=== PATIENT | female | born 1970 | race African-American/Black ===

== ENCOUNTER 2020-11-30 11:26 | Inpatient (IN) | payer MEDICARE, MEDICAID, SELFPAY ==
[~2020-11-30] VITALS: Ht 162.6 cm; Wt 137.9 kg
[2020-11-30] VITALS (11 sets, daily range): BP systolic 98–135
[2020-11-30] MEDS ORDERED: DEXAMETHASONE SOD PHOSPHATE 4 MG/ML VIAL IVP ONE (12:00)
[2020-11-30] MEDS ORDERED: AZITHROMYCIN 500 MG in NS 250 ML IV ONE (12:00)
[2020-11-30] MEDS ORDERED: cefTRIAXone 1 GM in D5W 50 ML IV ONE (12:00)
[2020-11-30] MEDS ORDERED: cefTRIAXone 1 GM VIAL ONE (12:12)
[2020-11-30] MEDS ORDERED: AZITHROMYCIN 500 MG/VIAL (ZITHROMAX) IV ONE (12:13)
[2020-11-30] MEDS ORDERED: DEXAMETHASONE SOD PHOSPHATE 4 MG/ML VIAL ONE (12:14)
[2020-11-30 12:48] LABS: BASOPHILS % (AUTO) 0.4 % (0.0-2.0); HEMATOCRIT 39.3 % (36-48); HEMOGLOBIN 12.8 g/dL (12.0-16.0); LYMPHOCYTES # (AUTO) 1.1 K/uL (1.0-5.5); LYMPHOCYTES % (AUTO) 14.5 % (20.5-51.5); MEAN CORPUSCULAR HEMOGLOBIN 25 pg (27-31); MEAN CORPUSCULAR HGB CONC 33 % (32-36); MEAN CORPUSCULAR VOLUME 77 fL (79.0-98.0); MONOCYTES # (AUTO) 0.6 K/uL (0.0-1.0); MONOCYTES % (AUTO) 7.9 % (1.7-9.3); NEUTROPHILS # (AUTO) 5.7 K/uL (1.8-7.7); NEUTROPHILS % (AUTO) 77.2 % (40.0-70.0); PLATELET COUNT (AUTO) 214 K/uL (130-430); RED CELL DISTRIBUTION WIDTH 15.9 % (9.0-15.0); WHITE BLOOD COUNT (AUTO) 7.4 K/uL (4.8-10.8)
[2020-11-30 12:57] LABS: CALCIUM 7.9 mg/dL (8.4-11.0); CREATININE 3.69 mg/dL (0.55-1.30); POTASSIUM 3.9 mmol/L (3.5-5.1)
[2020-11-30 13:14] LABS: ALBUMIN 2.9 g/dL (3.4-4.8); TOTAL BILIRUBIN 0.2 mg/dL (0.0-1.0)
[2020-11-30 13:21] LABS: INR 0.9 (0.8-1.2); PROTHROMBIN TIME 9.9 SECS (9.5-12.5)
[2020-11-30] MEDS ORDERED: LORazepam 2 MG/ML VIAL IVP ONE (13:30)
[2020-11-30] MEDS ORDERED: ASPIRIN 325 MG TABLET PO ONE (13:30)
[2020-11-30] MEDS ORDERED: LORazepam 2 MG/ML VIAL ONE (13:37)
[2020-11-30 13:45] LABS: CKMB RELATIVE INDEX 0.1 (0.0-2.9); CREATINE KINASE MB 1.9 ng/mL (0-3.6)
[2020-11-30 13:59] LABS: C-REACTIVE PROTEIN QUANT 11.8 mg/dL (0-0.5)
[2020-11-30] MEDS ORDERED: D5/0.45 NS 1,000 ML IV SCH (14:15)
[2020-11-30 15:16] LABS: BILIRUBIN,URINE NEGATIVE (NEGATIVE); BLOOD, URINE 3+ (NEGATIVE); CLARITY/URINE SL CLOUDY (CLEAR); COLOR,URINE YELLOW (YELLOW); GLUCOSE,URINE NEGATIVE (NEGATIVE); KETONES,URINE NEGATIVE (NEGATIVE); LEUKOCYTE ESTERASE ,URINE TRACE (NEGATIVE); NITRITE, URINE NEGATIVE (NEGATIVE); PH,URINE 5.5 (5.0-8.0); PROTEIN URINE 3+ (NEGATIVE); UROBILINOGEN,URINE 0.2 (0.2-1.0)
[2020-11-30] MEDS ORDERED: ACETAMINOPHEN 325 MG TABLET PO PRN (15:30)
[2020-11-30] MEDS ORDERED: ONDANSETRON HCL 4 MG/2 ML VIAL IVP PRN (15:30)
[2020-11-30 16:36] LABS: BACTERIA,URINE FEW /HPF (None Seen); COARSE GRANULAR CASTS,URINE 0-10 /LPF (None Seen); MUCUS,URINE None Seen /LPF (None Seen); URINE AMORPHOUS URATE 2+ /HPF (None Seen)
[2020-11-30] MEDS: D5/0.45 NS 1,000 ML IV SCH ×2 (17:02→21:30)
[2020-11-30] MEDS ORDERED: *HEPARIN PER PHARMACY XX ONE (17:45)
[2020-11-30] MEDS: IPRATROPIUM BROM 0.5 MG/2.5 ML VIAL.NEB (ATROVENT) INH SCH (19:00)
[2020-11-30] MEDS ORDERED: DEXAMETHASONE SOD PHOSPHATE 10 MG/ML VIAL IVP SCH (19:00)
[2020-11-30] MEDS: ALBUTEROL SULFATE 0.083% 2.5 MG/3 ML VIAL.NEB INH SCH (19:00)
[2020-11-30] MEDS ORDERED: HEPARIN SODIUM,PORCINE 2000 UNITS/0.4 ML BOLUS IVP PRN (19:45)
[2020-11-30] MEDS ORDERED: HEPARIN SODIUM,PORCINE 3000 UNITS/0.6 ML BOLUS IVP PRN (19:45)
[2020-11-30] MEDS ORDERED: IVERMECTIN 3 MG TABLET PO ONE (20:15)
[2020-11-30] MEDS: HEPARIN 25,000 UNITS in 250 ML PREMIX IV PRN (20:28)
[2020-11-30] MEDS: ASCORBIC ACID 500 MG TABLET PO SCH (21:00)
[2020-12-01] VITALS (24 sets, daily range): BP systolic 102–175
[2020-12-01] MEDS: D5/0.45 NS 1,000 ML IV SCH ×3 (06:00→21:30)
[2020-12-01 06:41] LABS: BASOPHILS % (AUTO) 0.5 % (0.0-2.0); EOSINOPHILS % (AUTO) 0.4 % (0.0-4.0); HEMATOCRIT 37.7 % (36-48); HEMOGLOBIN 12.4 g/dL (12.0-16.0); LYMPHOCYTES # (AUTO) 0.8 K/uL (1.0-5.5); LYMPHOCYTES % (AUTO) 9.7 % (20.5-51.5); MEAN CORPUSCULAR HEMOGLOBIN 26 pg (27-31); MEAN CORPUSCULAR HGB CONC 33 % (32-36); MEAN CORPUSCULAR VOLUME 80 fL (79.0-98.0); MONOCYTES # (AUTO) 0.5 K/uL (0.0-1.0); MONOCYTES % (AUTO) 6.1 % (1.7-9.3); NEUTROPHILS # (AUTO) 7.2 K/uL (1.8-7.7); NEUTROPHILS % (AUTO) 83.3 % (40.0-70.0); PLATELET COUNT (AUTO) 252 K/uL (130-430); RED BLOOD CELL COUNT(AUTO) 4.73 MIL/uL (4.2-6.2); RED CELL DISTRIBUTION WIDTH 15.8 % (9.0-15.0); WHITE BLOOD COUNT (AUTO) 8.6 K/uL (4.8-10.8)
[2020-12-01 07:57] LABS: ALBUMIN 2.7 g/dL (3.4-4.8); CREATININE 3.19 mg/dL (0.55-1.30); PHOSPHORUS 4.8 mg/dL (2.7-4.5); POTASSIUM 4.3 mmol/L (3.5-5.1); TOTAL BILIRUBIN 0.1 mg/dL (0.0-1.0)
[2020-12-01] MEDS: CHOLECALCIFEROL (VITAMIN D3) 5,000 UNIT TABLET PO SCH (08:09)
[2020-12-01] MEDS: ASCORBIC ACID 500 MG TABLET PO SCH ×2 (08:09→20:15)
[2020-12-01] MEDS ORDERED: ENOXAPARIN SODIUM 30 MG/0.3 ML SYRINGE SUBCUT SCH (09:00)
[2020-12-01] MEDS: cefTRIAXone 1 GM IVPB PREMIX 50 ML IV SCH (09:38)
[2020-12-01] MEDS ORDERED: IVERMECTIN 3 MG TABLET PO ONE (10:00)
[2020-12-01] MEDS: DEXAMETHASONE SOD PHOSPHATE 10 MG/ML VIAL IVP SCH (11:16)
[2020-12-01] MEDS: AZITHROMYCIN 500 MG in NS 250 ML IV SCH (11:17)
[2020-12-01] MEDS: HEPARIN 25,000 UNITS in 250 ML PREMIX IV PRN (11:55)
[2020-12-01] MEDS: ALBUTEROL SULFATE 0.083% 2.5 MG/3 ML VIAL.NEB INH SCH ×2 (19:00→23:00)
[2020-12-01] MEDS: IPRATROPIUM BROM 0.5 MG/2.5 ML VIAL.NEB (ATROVENT) INH SCH ×2 (19:00→23:00)
[2020-12-02] VITALS (24 sets, daily range): BP systolic 85–175
[2020-12-02] MEDS: DEXAMETHASONE SOD PHOSPHATE 10 MG/ML VIAL IVP SCH ×3 (00:23→23:57)
[2020-12-02] MEDS: LORazepam 2 MG/ML VIAL IVP PRN ×4 (02:13→20:56)
[2020-12-02] MEDS: ALBUTEROL SULFATE 0.083% 2.5 MG/3 ML VIAL.NEB INH SCH (03:00)
[2020-12-02] MEDS: IPRATROPIUM BROM 0.5 MG/2.5 ML VIAL.NEB (ATROVENT) INH SCH (03:00)
[2020-12-02] MEDS: HEPARIN 25,000 UNITS in 250 ML PREMIX IV PRN ×2 (04:07→20:55)
[2020-12-02] MEDS: D5/0.45 NS 1,000 ML IV SCH ×2 (05:33→18:26)
[2020-12-02] MEDS ORDERED: guaiFENesin/DEXTROMETHORPHAN 10 ML UDC PO PRN (06:15)
[2020-12-02] MEDS ORDERED: IPRATROPIUM BROMIDE 17 mCg/ACTUATION, 12.9 GM AER.W.ADAP INH SCH ×2 (07:00)
[2020-12-02] MEDS: ALBUTEROL MDI INHALATION 8 GM INH INH SCH ×5 (07:00→23:13)
[2020-12-02] MEDS: IPRATROPIUM BROMIDE 17 mCg/ACTUATION, 12.9 GM AER.W.ADAP INH SCH ×5 (07:00→23:00)
[2020-12-02] MEDS ORDERED: ALBUTEROL MDI INHALATION 8 GM INH INH SCH (07:00)
[2020-12-02 07:20] LABS: CALCIUM 7.8 mg/dL (8.4-11.0); CREATININE 2.36 mg/dL (0.55-1.30); PHOSPHORUS 2.6 mg/dL (2.7-4.5)
[2020-12-02 07:36] LABS: BASOPHILS % (AUTO) 0.1 % (0.0-2.0); HEMATOCRIT 35.1 % (36-48); HEMOGLOBIN 11.2 g/dL (12.0-16.0); LYMPHOCYTES # (AUTO) 0.5 K/uL (1.0-5.5); LYMPHOCYTES % (AUTO) 3.1 % (20.5-51.5); MEAN CORPUSCULAR HEMOGLOBIN 25 pg (27-31); MEAN CORPUSCULAR HGB CONC 32 % (32-36); MEAN CORPUSCULAR VOLUME 79 fL (79.0-98.0); MONOCYTES # (AUTO) 0.4 K/uL (0.0-1.0); MONOCYTES % (AUTO) 2.4 % (1.7-9.3); NEUTROPHILS # (AUTO) 14.8 K/uL (1.8-7.7); NEUTROPHILS % (AUTO) 94.4 % (40.0-70.0); PLATELET COUNT (AUTO) 216 K/uL (130-430); RED BLOOD CELL COUNT(AUTO) 4.44 MIL/uL (4.2-6.2); RED CELL DISTRIBUTION WIDTH 15.4 % (9.0-15.0); WHITE BLOOD COUNT (AUTO) 15.7 K/uL (4.8-10.8)
[2020-12-02] MEDS: CHOLECALCIFEROL (VITAMIN D3) 5,000 UNIT TABLET PO SCH (08:35)
[2020-12-02] MEDS: cefTRIAXone 1 GM IVPB PREMIX 50 ML IV SCH (08:35)
[2020-12-02] MEDS: ASCORBIC ACID 500 MG TABLET PO SCH ×2 (08:36→20:52)
[2020-12-02 09:03] LABS: C-REACTIVE PROTEIN QUANT 15.5 mg/dL (0-0.5)
[2020-12-02 09:42] LABS: ERYTHROCYTE SEDIMENTATION RATE 54 MM/HR (0-20)
[2020-12-02] MEDS ORDERED: NA PHOS 15 MM in NS 250 ML IV ONE (13:00)
[2020-12-02] MEDS: AZITHROMYCIN 500 MG in NS 250 ML IV SCH (13:10)
[2020-12-02] MEDS ORDERED: TOCILIZUMAB 400 MG in NS 100 ML IV ONE (18:00)
[2020-12-02] MEDS ORDERED: IVERMECTIN 3 MG TABLET PO ONE (18:00)
[2020-12-02] MEDS ORDERED: DEXMEDETOMIDINE HCL 200 MCG/2 ML VIAL IV ONE ×2 (21:29→23:11)
[2020-12-02] MEDS ORDERED: DEXMEDETOMIDINE HCL 200 MCG in NS 48 ML IV PRN ×2 (21:30→21:45)
[2020-12-02] MEDS: DEXMEDETOMIDINE HCL 200 MCG in NS 48 ML IV PRN ×2 (22:11→23:57)
[2020-12-03] VITALS (34 sets, daily range): BP systolic 77–124
[2020-12-03] MEDS ORDERED: PROPOFOL DRIP 100 ML IV PRN (01:30)
[2020-12-03] MEDS: IPRATROPIUM BROMIDE 17 mCg/ACTUATION, 12.9 GM AER.W.ADAP INH SCH ×6 (03:00→23:00)
[2020-12-03] MEDS: ALBUTEROL MDI INHALATION 8 GM INH INH SCH ×5 (03:11→19:28)
[2020-12-03] MEDS ORDERED: NS 250 ML IV ONE ×3 (03:15→08:45)
[2020-12-03] MEDS ORDERED: DEXMEDETOMIDINE HCL 200 MCG/2 ML VIAL IV ONE (03:15)
[2020-12-03] MEDS ORDERED: MIDAZOLAM IN NACL,ISO-OSMOT/PF 100 ML IV PRN (03:15)
[2020-12-03] MEDS ORDERED: MORPHINE SULFATE IN 0.9 % NACL 100 ML IV PRN (03:15)
[2020-12-03] MEDS ORDERED: MORPHINE SULFATE IN 0.9 % NACL 100 ML IV ONE (03:15)
[2020-12-03] MEDS ORDERED: MIDAZOLAM IN NACL,ISO-OSMOT/PF 100 ML IV ONE (03:28)
[2020-12-03] MEDS: NACL 0.9% 1,000 ML IV SCH (04:35)
[2020-12-03] MEDS: DEXMEDETOMIDINE HCL 200 MCG in NS 48 ML IV PRN (04:54)
[2020-12-03] MEDS ORDERED: NOREPINEPHRINE BITARTRATE 4 MG in NS 246 ML IV PRN ×2 (05:00→22:00)
[2020-12-03] MEDS ORDERED: NOREPINEPHRINE 4 MG/4 ML VIAL IV ONE ×5 (05:00→22:19)
[2020-12-03 07:28] LABS: HEMATOCRIT 28.5 % (36-48); HEMOGLOBIN 9.3 g/dL (12.0-16.0); MEAN CORPUSCULAR HEMOGLOBIN 27 pg (27-31); MEAN CORPUSCULAR HGB CONC 33 % (32-36); MEAN CORPUSCULAR VOLUME 82 fL (79.0-98.0); PLATELET COUNT (AUTO) 197 K/uL (130-430); RED BLOOD CELL COUNT(AUTO) 3.47 MIL/uL (4.2-6.2); RED CELL DISTRIBUTION WIDTH 16.7 % (9.0-15.0)
[2020-12-03] MEDS ORDERED: ETOMIDATE 20 MG/ 10 ML VIAL (AMIDATE) IVP ONE (08:08)
[2020-12-03] MEDS ORDERED: SUCCINYLCHOLINE CHLORIDE 20 MG/ML(QUELICIN) IVP ONE (08:08)
[2020-12-03] MEDS: cefTRIAXone 1 GM IVPB PREMIX 50 ML IV SCH (09:08)
[2020-12-03] MEDS: ASCORBIC ACID 500 MG TABLET PO SCH (09:09)
[2020-12-03] MEDS: CHOLECALCIFEROL (VITAMIN D3) 5,000 UNIT TABLET PO SCH (09:10)
[2020-12-03 09:47] LABS: ALBUMIN 1.6 g/dL (3.4-4.8); CALCIUM 7.1 mg/dL (8.4-11.0); CREATININE 5.25 mg/dL (0.55-1.30); TOTAL BILIRUBIN 0.3 mg/dL (0.0-1.0)
[2020-12-03 09:50] LABS: POTASSIUM 5.3 mmol/L (3.5-5.1)
[2020-12-03 09:51] LABS: PHOSPHORUS 4.9 mg/dL (2.7-4.5)
[2020-12-03 10:31] LABS: ERYTHROCYTE SEDIMENTATION RATE 56 MM/HR (0-20)
[2020-12-03 10:35] LABS: C-REACTIVE PROTEIN QUANT 20.3 mg/dL (0-0.5)
[2020-12-03] MEDS ORDERED: INSULIN REGULAR, HUMAN 100 UNITS/ML, 10 ML VIAL IVP ONE (11:00)
[2020-12-03] MEDS ORDERED: DEXTROSE 50% JECT 50 ML DISP.SYRIN IVP ONE (11:00)
[2020-12-03] MEDS ORDERED: SODIUM POLYSTYRENE SULFONATE 15 GM/60 ML UDBTL NG ONE (11:00)
[2020-12-03] MEDS ORDERED: FUROSEMIDE 40 MG/4 ML VIAL IVP ONE (11:00)
[2020-12-03 11:58] LABS: BAND % (MANUAL) 7 % (0-6); BASOPHILS % (MANUAL) 0 % (0-2); EOSINOPHILS % (MANUAL) 0 % (0-7); LYMPHOCYTES % (MANUAL) 3 % (20-46); MONOCYTES % (MANUAL) 5 % (0-11)
[2020-12-03] MEDS: DEXAMETHASONE SOD PHOSPHATE 10 MG/ML VIAL IVP SCH (11:58)
[2020-12-03] MEDS: AZITHROMYCIN 500 MG in NS 250 ML IV SCH (11:58)
[2020-12-03] MEDS ORDERED: CALCIUM GLUCONATE 1 GM in NS 100 ML IV ONE (12:00)
[2020-12-03] MEDS ORDERED: MAGNESIUM SULFATE 50 ML IV ONE (13:00)
[2020-12-03] MEDS: HEPARIN 25,000 UNITS in 250 ML PREMIX IV PRN (13:56)
[2020-12-03] MEDS: NOREPINEPHRINE BITARTRATE 4 MG in NS 246 ML IV PRN ×2 (13:59→18:28)
[2020-12-03] MEDS ORDERED: VASOPRESSIN 20 UNITS in NS 99 ML IV PRN (17:15)
[2020-12-03] MEDS: INSULIN REGULAR, HUMAN 100 UNITS/ML, 10 ML VIAL (humuLIN R) SUBCUT PRN (17:51)
[2020-12-03] MEDS ORDERED: FUROSEMIDE 40 MG/4 ML VIAL ONE (17:56)
[2020-12-03] MEDS ORDERED: FUROSEMIDE 20 MG/2 ML VIAL ONE (17:57)
[2020-12-03] MEDS ORDERED: FUROSEMIDE 100 MG in D5W 90 ML IV SCH (18:00)
[2020-12-03] MEDS ORDERED: PHENYLEPHRINE HCL 50 MG in NS 245 ML IV PRN (22:00)
[2020-12-03] MEDS ORDERED: NOREPINEPHRINE BITARTRATE 16 MG in NS 234 ML IV PRN (22:15)
[2020-12-03] MEDS ORDERED: PHENYLEPHRINE HCL 10 MG/ML VIAL (NEOSYNEPHRINE) ONE (23:06)
[2020-12-04] VITALS: BP_SYST 164
[2020-12-04] MEDS: ALBUTEROL MDI INHALATION 8 GM INH INH SCH (00:01)
[2020-12-04] MEDS: ASCORBIC ACID 500 MG TABLET PO SCH (00:41)
[2020-12-04] MEDS: DEXAMETHASONE SOD PHOSPHATE 10 MG/ML VIAL IVP SCH (00:42)
[2020-12-04 00:53] VITALS: BP_SYST 164
[2020-12-04] MEDS ORDERED: NOREPINEPHRINE 4 MG/4 ML VIAL IV ONE (01:06)
[2020-12-04] MEDS ORDERED: PHENYLEPHRINE HCL 10 MG/ML VIAL (NEOSYNEPHRINE) ONE (01:07)
[2020-12-04] MEDS: NACL 0.9% 1,000 ML IV SCH (01:11)
[2020-12-04] MEDS: INSULIN REGULAR, HUMAN 100 UNITS/ML, 10 ML VIAL (humuLIN R) SUBCUT PRN (01:16)
[2020-12-04] MEDS ORDERED: EPINEPHrine JECT 0.1 MG/ML SYR ONE (03:04)
[2020-12-04 05:41] VITALS: BP_SYST 140
== END 2020-12-04 03:05 | DRG 871 ==
LOC: SED 11:26 → SIC 14:12
PROVIDERS: ADMIT Preventive Medicine Preventive Medicine/Occupational Environmental Medicine; ATTEND Preventive Medicine Preventive Medicine/Occupational Environmental Medicine
PROC: 5A09357 Assistance with Respiratory Ventilation, Less than 24 Consecutive Hours, Continuous Positive Airway Pressure (ICD-10-PCS; 2020-12-02)
PROC: 5A1945Z Respiratory Ventilation, 24-96 Consecutive Hours (ICD-10-PCS; principal; 2020-12-03)
PROC: 0BH17EZ Insertion of Endotracheal Airway into Trachea, Via Natural or Artificial Opening (ICD-10-PCS; 2020-12-03)
PROC: 02HV33Z Insertion of Infusion Device into Superior Vena Cava, Percutaneous Approach (ICD-10-PCS; 2020-12-03)
DX: A41.9 Sepsis, unspecified organism (principal); U07.1 COVID-19; R65.21 Severe sepsis with septic shock; E43 Unspecified severe protein-calorie malnutrition; J80 Acute respiratory distress syndrome; I21.A1 Myocardial infarction type 2; G93.41 Metabolic encephalopathy; J12.82 Pneumonia due to coronavirus disease 2019; N17.9 Acute kidney failure, unspecified; M62.82 Rhabdomyolysis; Z99.11 Dependence on respirator [ventilator] status; Z68.43 Body mass index [BMI] 50.0-59.9, adult; E83.51 Hypocalcemia; R73.9 Hyperglycemia, unspecified; R74.01 Elevation of levels of liver transaminase levels; E88.09 Other disorders of plasma-protein metabolism, not elsewhere classified; E66.01 Morbid (severe) obesity due to excess calories; G47.33 Obstructive sleep apnea (adult) (pediatric); I46.9 Cardiac arrest, cause unspecified; E83.41 Hypermagnesemia; E83.39 Other disorders of phosphorus metabolism; E83.52 Hypercalcemia; E88.81 Metabolic syndrome and other insulin resistance; I12.9 Hypertensive chronic kidney disease with stage 1 through stage 4 chronic kidney disease, or unspecified chronic kidney disease; N18.9 Chronic kidney disease, unspecified; D64.9 Anemia, unspecified; E87.5 Hyperkalemia; Z91.19 Patient's noncompliance with other medical treatment and regimen; Z79.01 Long term (current) use of anticoagulants
CPT/HCPCS: 36415; 36600; 71045; 76700-TC; 80048; 80053; 81000; 82550; 82553; 82728; 82803-TC; 82962; 83605; 83615; 83735; 83880; 84100; 84484; 85007; 85025; 85027; 85379; 85384; 85610-TC; 85651-TC; 85730-TC; 86140; 86886; 86900; 86901; 87040-TC; 87086; 92950; 93005; 93306; 94002; 94003; 94640; 94660; 96365; 96368; 96375; 99291; J0171; J0330; J0456; J0610; J0696; J1100; J1644; J1815; J1940; J2060; J2270; J2370; J3262; J3475; J3490; J7050; J7060